=== PATIENT | male | born 2000 | race Caucasian/White ===

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

== ENCOUNTER 2020-12-06 14:18 | Emergency (ER) | payer BC, OTHER ==
[2020-12-06 15:25] VITALS: BP 143/94; PULSE 93
--- NOTE | 2020-12-06 16:08 | EDM.PDOC ---
ED HPI GENERAL MEDICAL PROBLEM - General Chief Complaint: Skin Complaint Stated Complaint: L LEG SKIN COMPLAINT Time Seen by Provider: 12/06/20 15:47 Source of Information: Reports: Patient, RN Notes Reviewed History Limitations: Reports: No Limitations - History of Present Illness INITIAL COMMENTS - FREE TEXT/NARRATIVE: Patient is a 20-year-old male who presents to the ER for a left toe complaint. Patient has an ingrown tail on the left great toe, and has a boil, or blister over the area as well. He was able to express some purulent material earlier today, but states it was very painful to do so, so he stopped. He was seen at the walk-in clinic last week, and placed on Augmentin for this. He notes he has an appointment with podiatry on Tuesday for ongoing management of his ankle issue, and he will address the toe issue at that time. He has had no fevers or chills, cough or shortness of breath, and is no nausea/vomiting/diarrhea. There is no redness or streaking up the foot at this time. Left Toe-Hailux Pain Score (Numeric/FACES): 7 - Related Data Allergies Allergy/AdvReac Type Severity Reaction Status Date / Time No Known Allergies Allergy Verified 12/06/20 15:25 Home Meds: Home Meds Acetaminophen/oxyCODONE [Percocet 325-5 MG] 1 each PO Q6H PRN #20 tab 12/06/20 [Rx] Amoxicillin/Clavulanate K [Augmentin 875-125 MG] 12/06/20 [History] Past Medical History Psychiatric History: Reports: Depression - Past Surgical History HEENT Surgical History: Reports: Adenoidectomy, Tonsillectomy Social & Family History - Family History Family Medical History: No Pertinent Family History - Tobacco Use Tobacco Use Status *Q: Never Tobacco User - Caffeine Use Caffeine Use: Reports: Soda, Tea - Recreational Drug Use Recreational Drug Use: No ED ROS GENERAL - Review of Systems Review Of Systems: Comprehensive ROS is negative, except as noted in HPI. ED EXAM, SKIN/RASH Exam: See Below Exam Limited By: No Limitations General Appearance: Alert, WD/WN, No Apparent Distress Respiratory/Chest: No Respiratory Distress, Lungs Clear, Normal Breath Sounds, No Accessory Muscle Use, Chest Non-Tender Cardiovascular: Normal Peripheral Pulses, Regular Rate, Rhythm, No Edema Peripheral Pulses: 2+: Dorsalis Pedis (L), Dorsalis Pedis (R) Extremities: Normal Range of Motion, Normal Capillary Refill, Limited Range of Motion (of left great toe d/t pain) Neurological: Alert, Oriented, Normal Cognition, No Motor/Sensory Deficits Psychiatric: Normal Affect, Normal Mood Skin: Warm, Dry, Normal Color, Wound/Incision (Ingrown toenail to the medial aspect of the left great toe, there is a pinpoint white lesion towards the end, that does look to be as if it is purulent material. Patient is very tender over this area.) Course - Vital Signs Last Recorded V/S: Last Vital Signs Temp 98.6 F 12/06/20 15:20 Pulse 93 12/06/20 15:20 Resp 13 12/06/20 15:20 BP 143/94 H 12/06/20 15:20 Pulse Ox 98 12/06/20 15:20 - Re-Assessments/Exams Free Text/Narrative Re-Assessment/Exam: 12/06/20 16:05 Patient presents to the ER for the evaluation of his ingrown left toenail, he is already on antibiotics, and is to see podiatry on Tuesday. We will go ahead and have him follow-up and continue antibiotics. I will get him some pain meds for ongoing management and get him discharged home at this time. He will be off work until he can be seen by podiatry on Tuesday. Departure - Departure Time of Disposition: 16:06 Disposition: Home, Self-Care 01 Condition: Good Clinical Impression: Ingrown toenail of left foot with infection - Discharge Information *PRESCRIPTION DRUG MONITORING PROGRAM REVIEWED*: No *COPY OF PRESCRIPTION DRUG MONITORING REPORT IN PATIENT FABIOLA: No Prescriptions: Acetaminophen/oxyCODONE [Percocet 325-5 MG] 1 each PO Q6H PRN #20 tab PRN Reason: Pain Instructions: Ingrown Toenail Referrals: PCP,None [Primary Care Provider] - Forms: ED Department Discharge, ED Return to Work/School Form Additional Instructions: You were evaluated in the ER today regarding your ingrown left great toenail. You were put on antibiotics from walk-in clinic, please continue to use these. You were given a prescription for a strong pain medication, oxycodone/acetaminophen 5/325 mg, please take 1 tab every 6 hours as needed for pain not relieved by Tylenol or ibuprofen alone. Please note this medication does contain Tylenol in it, so do not take more than 4000 mg in a 24-hour time span. These medications can be addictive, so please take as few as possible to achieve adequate pain control. These meds can also be quite constipating, recommend that you increase your oral fluid intake and take a stool softener like MiraLAX while taking these medications. Do not drive while taking this medication. This medication was electronically sent to the [place] pharmacy located in the [facility] grocery store. You may try to use heat/ice packs to the area to help reduce pain/swelling. You may also try to soak the toe with Epsom salts, to help relieve some of the infection. You may take 500 mg Tylenol or 600 mg ibuprofen every 6 hours as needed for further pain relief. Do not exceed 4000 mg Tylenol or 3200 mg ibuprofen in a 24-hour time span. Keep your appointment with podiatry on Tuesday, for ongoing management of your ingrown toenail, and other feet issues. Please return to the ER at any time if your symptoms change or worsen. Sepsis Event Note (ED) - Evaluation Sepsis Screening Result: Possible Sepsis Risk - Focused Exam Vital Signs: Vital Signs Temp Pulse Resp BP Pulse Ox 12/06/20 15:20 98.6 F 93 13 143/94 H 98
== END 2020-12-06 16:20 | disposition home or self-care (01) ==
LOC: JD.ED 14:18
DX: L60.0 Ingrowing nail (principal); L08.9 Local infection of the skin and subcutaneous tissue, unspecified
CPT/HCPCS: 99283

== ENCOUNTER 2024-12-22 09:27 | Emergency (ER) | payer SELFPAY ==
[2024-12-22 11:04] VITALS: BP 158/99; PULSE 89
== END 2024-12-22 11:04 | disposition home or self-care (01) ==
LOC: JD.ED 09:27
DX: Z71.1 Person with feared health complaint in whom no diagnosis is made (principal)
CPT/HCPCS: 99283